=== PATIENT | male | born 1995 | race Caucasian/White ===

== ENCOUNTER 2018-01-26 21:57 | Emergency (ER) | payer OTHER, BC ==
[2018-01-26 22:32] LABS: ADD MAN DIFF? NO
[2018-01-26 22:35] LABS: WHITE BLOOD COUNT 6.4 10^3/ul (4.8-10.8)
[2018-01-26 22:35] LABS: BASOPHILS % 0.6 % (0.0-2.0); EOSINOPHILS # 0.2 10^3/ul (0.0-0.5); EOSINOPHILS % 3.3 % (0.0-7.0); HEMATOCRIT 43.6 % (42.0-52.0); LYMPHOCYTES # 2.8 10^3/ul (0.8-2.9); LYMPHOCYTES % 43.1 % (15.0-51.0); MEAN CORPUSCULAR HEMOGLOBIN 22.3 pg (29.0-33.0); MEAN CORPUSCULAR HGB CONC 32.1 g/dl (32.0-37.0); MEAN CORPUSCULAR VOLUME 69.5 fl (82.0-101.0); MONOCYTE # 0.6 10^3/ul (0.3-0.9); NEUTROPHIL # 2.8 10^3/ul (1.6-7.5); NEUTROPHILS % 43.1 % (39.0-77.0); PLATELET COUNT 213 10^3/UL (140-415); RED BLOOD COUNT 6.27 10^6/ul (4.70-6.10); RED CELL DISTRIBUTION WIDTH 14.1 % (11.5-14.5)
[2018-01-26 22:54] LABS: ANION GAP 11 (5-13); BLOOD UREA NITROGEN 13 mg/dl (7-20); CALCIUM 9.9 mg/dl (8.4-10.2); CARBON DIOXIDE 30 mmol/L (21-31); CHLORIDE 101 mmol/L (97-110); CREATININE 0.64 mg/dl (0.61-1.24); Estimated GFR > 60 mL/min (>60); GLUCOSE 100 mg/dl (70-220); POTASSIUM 3.9 mmol/L (3.5-5.1); SODIUM 142 mmol/L (135-144)
== END 2018-01-27 00:04 | disposition home or self-care (01) ==
LOC: E/R 01-27 00:04
DX: K92.1 Melena (principal); K60.2 Anal fissure, unspecified; R40.2142 Coma scale, eyes open, spontaneous, at arrival to emergency department; R40.2252 Coma scale, best verbal response, oriented, at arrival to emergency department; R40.2362 Coma scale, best motor response, obeys commands, at arrival to emergency department
CPT/HCPCS: 36415; 80048; 85025; 99284

== ENCOUNTER 2018-05-08 11:00 | Emergency (ER) | payer OTHER ==
[2018-05-08] MEDS: HYDROCODONE/APAP (5/325) TAB PO (13:14)
[2018-05-08] MEDS: LIDOCAINE 4% CR TOP (13:15)
[2018-05-08] MEDS: DIPHTH/TET/ACEL PERTUSS (ADULT) 0.5 ML VIAL IM* (13:15)
[2018-05-08] MEDS: LIDOCAINE 1% (MDV) 20 ML INJ SC (13:16)
[2018-05-08] MEDS: BACITRACIN/POLYMYXIN 28.35 GM OINT TOP (14:25)
== END 2018-05-08 14:26 | disposition home or self-care (01) ==
LOC: FTE 11:00
DX: L60.0 Ingrowing nail (principal); Z23 Encounter for immunization
CPT/HCPCS: 11765; 90471; 90715; 99283-25

== ENCOUNTER 2018-05-13 11:25 | Emergency (ER) | payer OTHER | END 2018-05-13 14:17 | disposition home or self-care (01) | LOC: FTE 14:17 | DX: Z48.01 Encounter for change or removal of surgical wound dressing (principal); L60.0 Ingrowing nail | CPT/HCPCS: 11750; 99281-25 ==